=== PATIENT | female | born 1960 | race Caucasian/White ===

== ENCOUNTER → 2017-01-31 | Outpatient (CLI) | payer BC ==
--- NOTE | 2017-01-31 08:35 | DIAGNOSTIC IMAGING REPORT ---
RENAL ULTRASOUND HISTORY: Adrenal lesion. Hydronephrosis. Hematuria. COMPARISON: Abdomen and pelvis CT 12/24/2015. FINDINGS: Right kidney: 10.0 cm. Multiple small peripelvic cysts are again noted. No hydronephrosis. Normal corticomedullary differentiation and cortical thickness. Left kidney: 8.2 cm. Multiple small peripelvic cysts are again noted. The thick-walled cyst in the lower pole is not identified and may have resolved in the interval. No hydronephrosis. Normal corticomedullary differentiation and cortical thickness. Bladder: No bladder wall thickening. The bilateral ureteral jets were identified. IMPRESSION: Multiple small bilateral peripelvic cysts. No hydronephrosis. Electronically signed by: Mode Martinez M.D. 01/31/2017 8:34 AM Dictated Date/Time: 01/31/2017 7:27 AM
== END | disposition home or self-care (01) ==
LOC: C.ULTR 06:32
PROVIDERS: ATTEND Urology
DX: E27.9 Disorder of adrenal gland, unspecified (principal)